=== PATIENT | male | born 1970 | race Caucasian/White ===

== ENCOUNTER 2018-07-11 10:40 | Observation (INO) | payer OTHER ==
[2018-07-09 09:50] LABS: BASOPHILS % (AUTO) 0.6 % (0.0-5.0); HEMATOCRIT 44.5 % (42-54); LYMPHOCYTES % (AUTO) 23.5 % (21.0-51.0); MEAN CORPUSCULAR HEMOGLOBIN 30.3 pg (27.0-33.0); MEAN CORPUSCULAR HGB CONC 33.4 g/dL (32.0-36.0); MEAN CORPUSCULAR VOLUME 90.6 fL (79-99); MONOCYTES % (AUTO) 7.3 % (3.0-13.0); NEUTROPHILS % (AUTO) 66.6 % (40.0-77.0); PLATELET COUNT (AUTO) 247 K/uL (130-400); RED CELL DISTRIBUTION WIDTH 13.9 % (11.0-15.5)
[2018-07-09 09:53] LABS: APPEARANCE,URINE Clear (CLEAR); BILIRUBIN,URINE Negative (NEGATIVE); COLOR,URINE Yellow (YELLOW); GLUCOSE, URINE (UA) 500 mg/dL (NEGATIVE); KETONES,URINE Negative (NEGATIVE); LEUKOCYTE ESTERASE ,URINE Negative (NEGATIVE); NITRATE,URINE Negative (NEGATIVE); OCCULT BLOOD,URINE Negative (NEGATIVE); PH,URINE 5.5 (5.0-8.0); PROTEIN,URINE Negative (NEGATIVE); UROBILINOGEN,URINE 0.2 mg/dL (0.2-1.0)
[2018-07-09 09:58] LABS: CREATININE 0.9 mg/dL (0.5-1.5); POTASSIUM 4.6 mmol/L (3.5-5.1)
[2018-07-09 10:02] VITALS: BP 133/82
[2018-07-09 10:03] LABS: BACTERIA,URINE Rare /HPF (None Seen); RBC,URINE None Seen /HPF (0-1); SQUAMOUS EPITHELIAL CELL,UR Rare /HPF (0-2); WBC,URINE 0-1 /HPF (0-1)
[2018-07-09 10:16] LABS: INR 0.9 (0.85-1.15); PARTIAL THROMBOPLASTIN TIME 28.2 SEC (26.3-35.5); PROTHROMBIN TIME 9.5 SEC (9.6-11.6)
[~2018-07-11] VITALS: Ht 167.6 cm; Wt 77.3 kg
[2018-07-11] VITALS (11 sets, daily range): BP systolic 116–149; BP diastolic 74–91
[~2018-07-11 10:40] MED LIST: ASPI-555 PO; ATOR20TA65 PO; METF-446 PO; OLME20TA22 PO
[2018-07-11] MEDS ORDERED: IOHEXOL-350 50ML VIAL IV ONE (12:19)
[2018-07-11] MEDS ORDERED: SODIUM BICARB 50MEQ 50ML VIAL ONE (12:19)
[2018-07-11] MEDS ORDERED: IOHEXOL 350 MG/ML 100ML INFUS..BTL IV ONE (12:19)
[2018-07-11] MEDS ORDERED: NITROGLYCERIN 5 MG/ML 10 ML VIAL IV ONE (12:19)
[2018-07-11] MEDS ORDERED: LIDOCAINE HCL 2% 20ML ONE (12:20)
[2018-07-11] MEDS ORDERED: MEPERIDINE-PF 25 MG/ML SYG ONE ×2 (12:56→13:15)
[2018-07-11] MEDS ORDERED: MIDAZOLAM HCL 1 MG/ML 2ML VIAL ONE ×2 (12:56→13:15)
[2018-07-11] MEDS ORDERED: HEPARIN SODIUM 1000UNIT/ML 10ML VIAL ONE (13:07)
[2018-07-11] MEDS ORDERED: TICAGRELOR 90 MG TABLET ONE (13:30)
[2018-07-11] MEDS ORDERED: ONDANSETRON HCL 4 MG/2 ML VIAL IVP PRN (14:00)
[2018-07-11] MEDS ORDERED: ACETAMINOPHEN-CODEINE 300/30MG TAB PO PRN ×2 (14:00)
--- NOTE | 2018-07-11 18:45 | NUR ---
CALLED REPORT TO ROSANGELA FROM 2ND FLOOR, ADVISED THAT HOSPITALIST GROUP WAS PAGED, NO CONCERNS PT STABLE. TRANSFERED TO .
[2018-07-11] MEDS: SODIUM CHLORIDE 0.9% 1000ML 1,000 ML IV SCH (18:59)
[2018-07-11] MEDS ORDERED: METOPROLOL TARTRATE 25 MG TAB PO SCH (21:00)
--- NOTE | 2018-07-11 21:05 | NUR ---
ASSESSMENT PATIENT IS AAOX3. PATIENT DENIES CHEST PAIN AND SHORTNESS OF BREATH. ON ROOM AIR. RESPIRATIONS UNLABORED. SINUS RHYTHM HR 63 - 70'S. S/P LEFT HEART CATH. PERCLOSE TO RT. GROIN. SITE SOFT WITHOUT BLEEDING OR HEMATOMA. PEDAL PULSES STRONG. NS INFUSING AT 75ML/HR. SEE DOCUMENTATION FOR FULL ASSESSMENT. CALL LIGHT WITHIN REACH. INSTRUCTED PATIENT TO CALL IF ASSISTANCE IS NEEDED.
[2018-07-11] MEDS: TICAGRELOR 90 MG TABLET PO SCH (21:12)
[2018-07-12 00:07] VITALS: BP 130/79
--- NOTE | 2018-07-12 00:15 | NUR ---
RT. GROIN SOFT WITHOUT BLEEDING OR HEMATOMA. PEDAL PULSES PALPABLE.
[2018-07-12] MEDS: SODIUM CHLORIDE 0.9% 1000ML 1,000 ML IV SCH (03:10)
[2018-07-12 03:52] LABS: HEMATOCRIT 41.3 % (42-54); MEAN CORPUSCULAR HEMOGLOBIN 30.5 pg (27.0-33.0); MEAN CORPUSCULAR VOLUME 89.8 fL (79-99); NUCLEATED RED BLOOD CELLS 0.1 % (0.0-0.19); PLATELET COUNT (AUTO) 221 K/uL (130-400); RED CELL DISTRIBUTION WIDTH 14.1 % (11.0-15.5); WHITE BLOOD COUNT (AUTO) 7.5 K/uL (4.8-10.8)
[2018-07-12 04:08] LABS: POTASSIUM 4.3 mmol/L (3.5-5.1)
[2018-07-12 04:22] VITALS: BP 136/88
[2018-07-12 07:41] VITALS: BP 142/89
[2018-07-12] MEDS ORDERED: GLUCAGON 1MG KIT 1 MG ML IM PRN (08:00)
[2018-07-12] MEDS ORDERED: DEXTROSE 50%-WATER 50 ML DISP.SYRIN IV PRN (08:00)
--- NOTE | 2018-07-12 08:15 | NUR ---
AM ASSESSMENT PT LAYING IN BED, WATCHING TV. FAMILY @ BEDSIDE. A/O X 3. NO SOB. NO DISTRESS NOTED. DENIES CHEST PAIN OR DISCOMFORT. DENIES PALPITATIONS. TELE:SR 70s. DENIES N/V AND/OR DIARRHEA. RT GROIN DSG DRY & INTACT. PUNCTURE SITE SOFT, NON-TENDER. NO BLEEDING, NO HEMATOMA NOTED. (+) BILATERAL PEDAL PULSES. BLE PINK & WARM TO TOUCH. INSTRUCTED TO CALL FOR ASSISTANCE. CALL ZEINAB W/IN REACH.
[2018-07-12] MEDS: TICAGRELOR 90 MG TABLET PO SCH (08:58)
[2018-07-12] MEDS: LOSARTAN 100 MG TABLET PO SCH ×2 (08:58→09:00)
[2018-07-12] MEDS ORDERED: ASPIRIN 81MG TAB.CHEW PO SCH (09:00)
[2018-07-12] MEDS ORDERED: ATORVASTATIN CALCIUM 20 MG TABLET PO SCH (09:00)
[2018-07-12 11:45] VITALS: BP 133/86
[2018-07-12] MEDS: INSULIN HUMULIN R 100 UNIT/ML 3ML SQ SCH ×2 (11:52→16:30)
[2018-07-12 16:34] VITALS: BP 135/93
--- NOTE | 2018-07-12 19:15 | NUR ---
DISCHARGE PT TAKEN TO PRIVATE VEHICLE VIA WC BY Cecilia IRAHETA PCP, ACCOMPANIED BY . NO DISTRESS NOTED.
--- NOTE | 2018-07-12 19:19 | NUR ---
GIVEN DISMISSAL INSTRUCTIONS ALONG WITH SCRIPTS. VERBALIZED UNDERSTANDING. REMOVED SALINE LOCK FROM LEFT ARM , IV SITE WITHOUT REDNESS NOTED. REMOVED TELE PACK. TAKEN TO PRIVATE CAR ALONG WITH PERSONAL BELONGINGS VIA WHEELCHAIR BY AI ANDERS.
== END 2018-07-12 19:17 | disposition home or self-care (01) ==
LOC: DAH 10:40 → DAHIP 10:41 → DAH 10:41 → 2AH 18:12
PROVIDERS: ADMIT Internal Medicine; ATTEND Internal Medicine
DX: I25.119 Atherosclerotic heart disease of native coronary artery with unspecified angina pectoris (principal); I10 Essential (primary) hypertension; E11.9 Type 2 diabetes mellitus without complications
CPT/HCPCS: 36415 ×2; 71045; 80048 ×2; 80061; 81001; 82948 ×5; 85025; 85027; 85610; 85730; 93005; 93458; 96372; A4606; C1760; C1769 ×2; C1874; C1887; C1894 ×2; C9600; G0378 ×33; J1644 ×2; J1815; J2175 ×2; J2250 ×2; J3490 ×3; Q9965; Q9967 ×2; 99156; 99157

== ENCOUNTER 2023-08-28 05:44 | Day surgery (SDC) | payer OTHER ==
[2023-08-28] VITALS (12 sets, daily range): BP systolic 93–119; BP diastolic 58–76; PULSE 67–74; RESP 15–17
[~2023-08-28] VITALS: Ht 165.1 cm; Wt 65.8 kg
[~2023-08-28 05:44] MED LIST changes: +ASPI-1012 PO; -ASPI-555 PO; -ATOR20TA65 PO; +EMPA1TAB7 PO; +LOSA25TA41 PO; -METF-446 PO; +MULT-1367 PO; -OLME20TA22 PO; +ROSU40TA21 PO; +TIRZ7.5P SQ
[2023-08-28] MEDS ORDERED: OLME20TA68 PO (06:18)
[2023-08-28] MEDS: 0.9%NACL 1000ML 1,000 ML IV ONE (06:19)
[2023-08-28] MEDS ORDERED: LIDOCAINE HCL 1% 20 ML VIAL ONE (07:05)
[2023-08-28] MEDS ORDERED: PROPOFOL 10 MG/ML 20ML VIAL IV ONE (07:05)
== END 2023-08-28 08:28 | disposition home or self-care (01) ==
LOC: DAH 05:44 → ENDO 05:44
PROVIDERS: ATTEND Internal Medicine Gastroenterology
DX: R19.4 Change in bowel habit (principal); K64.0 First degree hemorrhoids; K57.30 Diverticulosis of large intestine without perforation or abscess without bleeding; I25.10 Atherosclerotic heart disease of native coronary artery without angina pectoris; E11.9 Type 2 diabetes mellitus without complications; I11.9 Hypertensive heart disease without heart failure; E78.00 Pure hypercholesterolemia, unspecified; Z79.82 Long term (current) use of aspirin; Z79.899 Other long term (current) drug therapy; Z95.5 Presence of coronary angioplasty implant and graft; Z90.49 Acquired absence of other specified parts of digestive tract; Z88.8 Allergy status to other drugs, medicaments and biological substances
CPT/HCPCS: 82948 ×2; 45378; J7030 ×2; J2704; A4620; A4215; A4223; A7002; A4222; A4221; A4663; A4606; 45380; 45385; J3490